=== PATIENT | female | born 1935 | race Caucasian/White ===

== ENCOUNTER 2016-12-31 13:58 | Inpatient (IN) | payer MEDICARE, OTHER ==
--- NOTE | 2016-12-31 15:06 | EDPRACDOC ---
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: Home Medications Colesevelam HCl [Welchol] 625 mg PO BID 05/28/14 Levothyroxine Sodium [Synthroid] [place] [address]/28/14 Atorvastatin Calcium [Lipitor] 40 mg PO 1000 10/08/15 Gabapentin 400 mg PO BID 02/02/16 Aspirin (Enteric Coated) [Halfprin] 81 mg [place] 99905/27/16 Bethanechol [Urecholine] 25 mg PO BID 08/31/16 Calcium Carbonate/Vitamin D3 [Calcium 600 + Vit D Tablet] 1 tab PO 999 Cyanocobalamin (Vitamin B-12) [B-12] 1,[place] [address]/31/16 Fish Oil/Dha/Epa [Fish Oil 1,200 mg Fish Oil] 1 [place] [address]/31/16 Hydrocodone/Acetaminophen [Hydrocodon-Acetaminophn 10-325] 1 tab PO TID Loperamide HCl [Imodium A-D] 2 mg PO DIR PRN 08/31/16 Melatonin 5 mg PO HS 08/31/16 Nitrofurantoin [Macrobid] 100 mg PO 1700 08/31/16 Omeprazole [Prilosec] [place] [address]/31/16 Paroxetine HCl [Paxil] [place] [address]/31/16 Potassium Chloride [Klor-Con] 20 meq PO BID 08/31/16 Vit C/E/Zn/Coppr/Lutein/Zeaxan [Ocuvite Lutein & Zeaxanthin Cp] 1 cap PO 999 Fexofenadine HCl [Allergy Relief] 60 mg PO DAILY PRN 10/05/16 Phosp Acid/Dextrose/Fructose [Emetrol Oral Solution] 15 ml PO .Q15M PRN Glipizide [Glipizide ER] [place] [address]/11/16 Juice Plus Garden 1 tab PO BID 10/11/16 Juice Plus Orchard 1 tab PO BID 10/11/16 Acetaminophen Ex Str Tablet [TYLENOL EXTRA STRENGTH Tablet] 1,000 mg PO Q6H PRN 12/31/16 Dextran 70/Hypromellose [Artificial Tears Drops] 2 drops OU QID 01/30/17 Ferrous Sulfate [Slow Release Iron] 45 mg PO 1000 12/31/16 Guaifenesin-Dextromethorphan [Robitussin Dm] 10 ml PO Q4H PRN 12/31/16 Loperamide HCl [Loperamide] 2 mg PO QID PRN 12/31/16 Allergies/Adverse Reactions: Allergies Allergy/AdvReac Type Severity Reaction Status Date / Time codeine Allergy Nausea/Vomi Verified 12/31/16 14:52 ting Penicillins Allergy Unknown Verified 12/31/16 14:52 promethazine HCl Allergy Confusion Verified 12/31/16 14:52 [From Phenergan] Sulfa (Sulfonamide Allergy Unknown Verified 12/31/16 14:52 Antibiotics) - History of Present Illness Onset: this am Exact Onset of Symptoms: Unknown Date Symptoms Started: 12/31/16 HPI: PT PRESENTS WITH REPORT OF ALTERED MENTAL STATUS AND DIFFICULT SPEECH. SHE WAS NORMAL YESTERDAY PER FAMILY. SHE HAS ACCOMPANYING LOWER ABDOMINAL PAIN. DAUGHTER REPORTS HISTORY OF AMS WITH UTI. NO HISTORY OF DEMENTIA. SHE HAS HISTORY OF TIA AND A TRAUMATIC HEAD BLEED IN 2016. Duration: Since Onset Symptoms Currently: Reports: Still Present Altered Quality: Reports: Decreased Alertness Altered Severity: Reports: Moderate Relevant History: Reports: Diabetes. Denies: CVA, Dementia Associated signs and symptoms: Reports: Slurred speech (POOR WORD FINDING AND SLOW SPEECH PATTERN.). Denies: Chest pain, Headache, Seizure - Treatment Prior to ED Arrival Reported Medications/Treatment [employer] OPER[employer] EMS Treatment BLS ED Past Medical History - History Reviewed Yes Nurses notes reviewed and agree except as marked - Patient Medical History Neurological History: Reports: Cerebrovascular Accident (2009) Cardiac History: Reports: Hypertension (often has low blood pressures), Hypercholesterolemia Respiratory History: Reports: COPD, Pneumonia GI/ History: Reports: Urinary Tract Infection, Gastroesophageal Reflux Musculoskeletal History: Reports: Arthritis (and chronic back pain with DDD), Osteoarthritis (AND LEGALLY BLIND.) Psychological History: Reports: Depression. Denies: Substance Use Disorder Systemic History: Reports: Diabetes (Type 2, diagnosed in her 20's. Also gastroparesis.), Hyperthyroidism, Hypothyroidism. Denies: Cancer Surgical History: Reports: Cholecystectomy, Hysterectomy (for uterine cancer), Other (LEFT HIP) Date of Last Radiation Treatment: 28 yrs ago - Family Medical History Reports: Diabetes (Mother), Cancer (Father). Denies: Hypertension, Stroke, Cardiac Disorders - Social Medical History Smoking Status: Never smoker Social History: Denies: Substance Use Disorder Lives With: Spouse Lives In: Home EDM Review of Systems - Review of Systems ROS Negative Except as Marked: Yes All systems reviewed and were negative except as marked Constitutional: Fatigue, Weakness. negative: Fever Respiratory: negative: Shortness of Breath Cardiovascular: negative: Chest Pain Gastrointestinal: Pain. negative: Vomiting Neurological: Speech Difficulty. negative: Headache - Physical Exam Constitutional: Alert. negative: Well appearing Oriented to: Time, Person, Place Last recorded Vital Signs: Last Vital Signs Temp 98.2 F 12/31/16 14:20 Pulse 90 12/31/16 14:43 Resp 20 12/31/16 14:43 BP 197/86 H 12/31/16 14:43 Pulse Ox 98 12/31/16 14:43 Oxygen Pulse Oxygen Saturation 98 O2 Device Oxygen Flow Rate Fraction of Inspired Oxygen ( FIO2) - HEENT Head: negative: Deformity, Laceration Eye Exam: negative: Conjunctival Injection, Pale Conjunctiva Oropharynx: negative: Membranes Dry Nose: negative: Congestion, Discharge Neck: negative: Limited ROM - Respiratory/Cardiovascular Respiratory: Normal - CTA. negative: Accessory Muscle Use, Diminished, Tachypnea Cardiovascular: negative: Bradycardia, Tachycardia - GI Auscultation: Normal Palpation: Normal Tenderness: Moderate, Guarding, Suprapubic. negative: Rebound, Rigidity - Musculoskeletal Extremities: Radial Pulse (PALPABLE) - Integumentary Skin: Warm, Dry. negative: Rash - Neurologic Memory Impaired: Normal Motor Function: Normal Mood Description: Anxious Thought: Coherent - Results 12/31/16 15:30 12/31/16 15:30 - EKG EKG #1 EKG Time: 15:05 -: Yes EKG interpreted by me Rate: bpm: 91 [place]: LAD Rhythm: NSR ST: Nonsp - Departure Yes I personally saw and evaluated the patient. Disposition: Admit IP To This Hospital Final Diagnosis: CVA (cerebral vascular accident) Qualifiers: CVA mechanism: unspecified Qualified Code(s): I63.9 - Cerebral infarction, unspecified Hypertension Qualifiers: Hypertension type: essential hypertension Qualified Code(s): I10 - Essential ( primary) hypertension Decision to Admit Time: 18:45 Decision to admit date: 12/31/16 Decision to admit: from ED NIH Stroke Scale Initial Evaluation Level of Consciousness: Alert LOC- Question: Answers Both Correctly LOC Commands: Both Task Correctly Best Gaze: Normal Visual: No Visual Loss Facial Palsy: Normal Movement Motor Arm LEFT: No Drift Motor Arm RIGHT: No Drift Motor Leg LEFT: No Drift Motor Leg RIGHT: No Drift Limb Ataxia: Absent Sensory: Normal Best Language: No Aphasia Dysarthria: Mild to Moderate Extinction and Inattention: No Abnormality (Neglect) Score: 1out of42
--- NOTE | 2016-12-31 15:19 | DIRPT ---
CLINICAL DATA: Abdominal PICC EXAM: PORTABLE CHEST 1 VIEW COMPARISON: Chest x-ray dated 10/11/2016. FINDINGS: Mild cardiomegaly is unchanged. Overall cardiomediastinal silhouette is stable in size and configuration. Mild scarring/fibrosis again noted within each lung. No evidence of pneumonia. No pleural effusion. No evidence of significant volume overload/CHF. Slight elevation of the right hemidiaphragm is again noted. Old healed fracture of the left clavicle again noted. Osseous and soft tissue structures about the chest are otherwise unremarkable. IMPRESSION: Stable chest x-ray. No acute findings. Electronically Signed By: Dillon Reese M.D. On: 12/31/2016 15:16
[2016-12-31 15:29] LABS: LEUKOCYTES/URINE 1+ (NEGATIVE); NITRITE/URINE NEG (NEGATIVE); URINE OCCULT BLOOD NEG (NEG/TRACE)
[2016-12-31] MEDS ORDERED: Pharmacy Review for Metformin - IV Contrast Given SCH (16:00)
[2016-12-31 16:02] LABS: AUTOMATED BASOPHIL 0.4 % (0-2); AUTOMATED EOSINOPHIL 0.2 % (0-5); AUTOMATED LYMPH 27.3 % (17-44); AUTOMATED MONOCYTE 6.4 % (3-10); AUTOMATED NEUTROPHIL 65.7 % (45-76); MPV 7.4 fL (7.4-10.4)
[2016-12-31 16:20] LABS: PT-INR 1.1
[2016-12-31 16:29] LABS: BLOOD UREA NITROGEN 18 MG/DL (7-17); CALCIUM 10.2 MG/DL (8.4-10.2); CALCULATED OSMOLALITY 271 MOs/Kg (270-290); CHLORIDE 103 mEq/L (98-107); GLUCOSE 117 MG/DL (70-99); SODIUM LEVEL 139 mEq/L (137-146); TOTAL PROTEIN 8.4 G/DL (6.3-8.2)
--- NOTE | 2016-12-31 17:37 | DIRPT ---
CLINICAL DATA: Altered mental status. History of uterine cancer. EXAM: CT HEAD WITHOUT CONTRAST TECHNIQUE: Contiguous axial images were obtained from the base of the skull through the vertex without intravenous contrast. COMPARISON: 10/11/2016 FINDINGS: Sinuses/Soft tissues: Clear paranasal sinuses and mastoid air cells. Intracranial: Moderate low density in the periventricular white matter likely related to small vessel disease. Dense vertebral and carotid atherosclerosis. Vague hypoattenuation within the right side of the milagros on image 10/series 2. This was present on 08/31/2016. No mass lesion, hemorrhage, hydrocephalus, acute infarct, intra-axial, or extra-axial fluid collection. IMPRESSION: 1. No acute intracranial abnormality. 2. Small vessel ischemic change, moderate in severity. 3. Remote right pontine infarct. Electronically Signed By: Frankie Calvillo M.D. On: 12/31/2016 17:34
--- NOTE | 2016-12-31 17:38 | DIRPT ---
CLINICAL DATA: Lower abdominal pain. History of hysterectomy for uterine cancer. Prior cholecystectomy. EXAM: CT ABDOMEN AND PELVIS WITH CONTRAST TECHNIQUE: Multidetector CT imaging of the abdomen and pelvis was performed using the standard protocol following bolus administration of intravenous contrast. CONTRAST: 80 cc Isovue 370 IV. COMPARISON: 01/31/2016 CT abdomen/ pelvis. FINDINGS: Lower chest: No significant pulmonary nodules or acute consolidative airspace disease. Hepatobiliary: Normal liver with no liver mass. Cholecystectomy. No intrahepatic biliary ductal dilatation. Common bile duct diameter 10 mm, not appreciably changed since 01/31/2016 and at the upper limits of normal post cholecystectomy. Pancreas: Normal, with no mass or duct dilation. Spleen: Normal size. No mass. Adrenals/Urinary Tract: Normal adrenals. Hypodense 0.9 cm renal lesion in the lower left kidney, too small to characterize, unchanged since 01/31/2016, suggesting a benign renal cyst. Additional tiny subcentimeter hypodense renal cortical lesions in the left kidney are too small to characterize and not appreciably changed. No hydronephrosis. Normal bladder. Stomach/Bowel: Tiny hiatal hernia. Otherwise collapsed and grossly normal stomach. Normal caliber small bowel with no small bowel wall thickening. The appendix is either diminutive or surgically absent. Normal large bowel with no diverticulosis, large bowel wall thickening or pericolonic fat stranding. Mild to moderate rectal stool, with no rectal wall thickening. Vascular/Lymphatic: Atherosclerotic nonaneurysmal abdominal aorta. Patent portal, splenic, hepatic and renal veins. No pathologically enlarged lymph nodes in the abdomen or pelvis. Reproductive: Status post hysterectomy, with no abnormal findings at the vaginal cuff. No adnexal mass. Other: No pneumoperitoneum, ascites or focal fluid collection. Musculoskeletal: No aggressive appearing focal osseous lesions. Severe degenerative disc disease throughout the visualized thoracolumbar spine. Left femoral neck pin with partially visualized interlocking intramedullary reina in the proximal left femoral shaft, with no evidence of hardware fracture or loosening. IMPRESSION: 1. No evidence of bowel obstruction or acute bowel inflammation. Mild to moderate rectal stool without rectal wall thickening. 2. Status post hysterectomy, with no abnormal findings at the vaginal cuff. 3. Tiny hiatal hernia. Electronically Signed By: Aftab Albert M.D. On: 12/31/2016 17:36
[2016-12-31] MEDS ORDERED: ONDANSETRON HCL 4 MG/2 ML VIAL IV STA ×2 (18:37→19:57)
[2016-12-31] MEDS ORDERED: ASPIRIN 300 MG SUPP PR ONE (18:53)
--- NOTE | 2016-12-31 19:28 | HISTPHYS ---
- Chief Complaint difficulty speaking - History of Present Illness PRIMARY CARE PROVIDER: Dr. Son UROLOGIST: Dr. Gordon GI: Dr. Rivera HPI: The patient is an 81 yo woman with history of CVA 2009, subarachnoid hemorrhage after trauma 08/2016, who presents with word finding. Per report, she may have woken up with the word finding. She was in bed all day and was not well. She would start a sentence and then would be unable to finish her sentence. The patient's daughter provides history and also showed a video of how her mother was talking today. The daughter reports the patient was fine yesterday. The patient seemed aware that she could not say what she wanted to say. She did not really even start sentences; she just would say a word or 2 and then stop talking. Daughter thinks the patient is understanding what the daughter is saying. Onset: either overnight or early this morning. Duration: intermittent. Location: generalized. Character: difficulty speaking; not saying many words. Alleviated by: Nothing. Exacerbated by: Nothing. Associated Symptoms: No headache. She is in a wheelchair most of the time at baseline. She falls frequently. Treatments: none at home except usual medications. The patient has had nausea and vomiting. She also has frequent diarrhea and abdominal pain. The patient's daughter reports that all of these symptoms are chronic and due to gastroparesis and effects of radiation therapy on her abdomen received years ago for uterine cancer. - Medical History Cardiac History: Reports: Hypertension (Hx of. But has orthostatic hypotension when taking bp meds.), Hypercholesterolemia Respiratory History: Reports: Pneumonia GI/ History: Reports: Urinary Tract Infection, Gastroesophageal Reflux (and gastroparesis with recurrent N/V/D. 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 Also gastroparesis, frequent diarrhea.), Hyperthyroidism, Hypothyroidism Neurological History: Reports: Cerebrovascular Accident (2009. SUBARACHNOID HEMORRHAGE 08/2016 POST FALL; [place] at [facility].) Psychological History: Reports: Depression. Denies: Substance Use Disorder OTHER HISTORY: RETINAL DETACHMENT. Macular degeneration. Legally blind. From notes from [facility] Hospitalization 08/31/16 - 09/07/16: Diagnosis: TRAUMATIC SUBARACHNOID HEMORRHAGE. Type of Stroke: Hemorrhagic. Cause of Stroke: Trauma. Hospital Course: The patient had a fall on 08/31/2016. Prior to the fall she was normal and conversational. She was brought to [facility], and was found to have altered mental status and a small left frontal subarachnoid hemorrhage. She was transferred to [facility]. The patient returned to her baseline by the morning after admission. A scan 24 hours later revealed stable subarachnoid hemorrhage. On 09/06/2016, the patient developed nausea and vomiting, and a repeat head CT revealed redistribution of the subarachnoid hemorrhage with no evidence of extension of previous hemorrhage or additional hemorrhage. The patient did not have cranial surgery for her hemorrhage. She was discharged to rehab facility. At the time of discharge the patient's aspirin of 81 mg was restarted but her Plavix was held. Note states that the Plavix could be restarted at the discretion of the patient's primary care physician. The patient did have hypertension during the visit and was started on metoprolol 25 mg p.o. twice daily and lisinopril 5 mg daily. Patient was also found to have pneumonia and completed a 7 day course of cefepime and vancomycin. The exam notes for cranial nerves include cranial nerves: Unable to visualize optic nerve on right with left eye temporal field intact. Left pupil with slow with sluggish response. Total ICH Score on admission: 1. For Level of Arlin Coma Score: 0 (For GCS 13-15) Age 80 or greater: 1 ICH Volume 30 mL or greater: 0 Intraventricular hemorrhage: 0 Infratentorial Origin of hemorrhage: 0 The patient was discharged on a statin, atorvastatin 40 mg p.o. daily. Note: Scanned records from the [facility] 08/31/16 hospitalization are available in [email or web address] by selecting the 10/11/16 [facility] admission and then selecting "Other facility records" under the Note section for that admission. - Surgical History Reports: Cholecystectomy, Hysterectomy (for uterine cancer approx 1987), Other ( LEFT HIP gamma nail 05/2016.) - Medictions/Allergies Allergies codeine Allergy (Verified 12/31/16 14:52) Nausea/Vomiting Penicillins Allergy (Verified 12/31/16 14:52) Unknown PER FACILITY MAR promethazine HCl [From Phenergan] Allergy (Verified 12/31/16 14:52) Confusion Sulfa (Sulfonamide Antibiotics) Allergy (Verified 12/31/16 14:52) Unknown Current Medication List: Reviewed Home Medications Colesevelam HCl [Welchol] 625 mg PO BID 05/28/14 Levothyroxine Sodium [Synthroid] [place] [address]/28/14 Atorvastatin Calcium [Lipitor] [place] [address]/08/15 Gabapentin 400 mg PO BID 02/02/16 Aspirin (Enteric Coated) [Halfprin] 81 mg PO 99905/27/16 Bethanechol [Urecholine] 25 mg PO BID 08/31/16 Calcium Carbonate/Vitamin D3 [Calcium 600 + Vit D Tablet] 1 tab PO 999 Cyanocobalamin (Vitamin B-12) [B-12] 1,[place] [address]/31/16 Fish Oil/Dha/Epa [Fish Oil 1,200 mg Fish Oil] 1 [place] [address]08/31/16 Hydrocodone/Acetaminophen [Hydrocodon-Acetaminophn 10-325] 1 tab PO TID Loperamide HCl [Imodium A-D] 2 mg PO DIR PRN 08/31/16 Melatonin 5 mg PO HS 08/31/16 Nitrofurantoin [Macrobid] 100 mg PO 1700 08/31/16 Omeprazole [Prilosec] [place] [address]/31/16 Paroxetine HCl [Paxil] [place] [address]/31/16 Potassium Chloride [Klor-Con] 20 meq PO BID 08/31/16 Vit C/E/Zn/Coppr/Lutein/Zeaxan [Ocuvite Lutein & Zeaxanthin Cp] 1 cap PO 999 Fexofenadine HCl [Allergy Relief] 60 mg PO DAILY PRN 10/05/16 Phosp Acid/Dextrose/Fructose [Emetrol Oral Solution] 15 ml PO .Q15M PRN Glipizide [Glipizide ER] [place] [address]/11/16 Juice Plus Garden 1 tab PO BID 10/11/16 Juice Plus Orchard 1 tab PO BID 10/11/16 Acetaminophen Ex Str Tablet [TYLENOL EXTRA STRENGTH Tablet] 1,000 mg PO Q6H PRN 12/31/16 Dextran 70/Hypromellose [Artificial Tears Drops] 2 drops OU QID 12/31/16 Ferrous Sulfate [Slow Release Iron] 45 mg PO 1000 12/31/16 Guaifenesin-Dextromethorphan [Robitussin Dm] 10 ml PO Q4H PRN 12/31/16 Loperamide HCl [Loperamide] 2 mg PO QID PRN 12/31/16 - Family History Reports: Diabetes (Mother), Cancer (Father). Denies: Stroke, Cardiac Disorders - Social History Smoking Status: Never smoker Social History: Denies: Alcohol Use, Substance Use Disorder - Review of Systems Yes Review of systems cannot be obtained due to the patient's medical condition - Physical Exam Vital Signs: Initial Vitals Temperature 98.2 F 12/31/16 14:20 Pulse Rate 90 12/31/16 14:20 Respiratory Rate 19 12/31/16 14:20 Blood Pressure 136/90 12/31/16 14:20 Pulse Oxygen Saturation 98 12/31/16 14:20 Vital Signs - 24 hr 12/31/16 12/31/16 12/31/16 14:20 14:43 16:24 Temperature 98.2 F Pulse Rate 90 90 100 Respiratory 19 20 20 Rate Blood Pressure 136/90 197/86 H 166/76 Pulse Oxygen 98 98 98 Saturation 12/31/16 12/31/16 12/31/16 18:56 19:15 19:39 Temperature Pulse Rate 102 98 100 Respiratory 18 18 22 Rate Blood Pressure 191/87 H 207/97 H 146/72 Pulse Oxygen 97 97 92 Saturation 12/31/16 12/31/16 12/31/16 20:23 21:31 22:18 Temperature 97.9 F Pulse Rate 96 96 95 Respiratory 22 22 24 Rate Blood Pressure 160/77 169/79 149/65 Pulse Oxygen 97 96 99 Saturation - Other Exam Other Exam Findings: GENERAL: Ill-appearing, well nourished, in acute distress. HEENT: Normocephalic, atraumatic; pupils equal and round. Nares patent, without discharge or bleeding. No oropharyngeal lesions or erythema. Mucous membranes are dry. NECK: is supple, no masses, trachea midline. RESPIRATORY: Clear to auscultation bilaterally. Chest wall movements are symmetric. No use of accessory muscles to breathe. No wheezing, rales, rhonchi. CARDIOVASCULAR: Normal S1, S2. No rubs, or gallops. PMI non-displaced. Carotids : no carotid bruits. No bradycardia or tachycardia. DP pulses 1-2+ bilaterally. GI: soft, nontender, non-distended, normal active bowel sounds. No hepatosplenomegaly. INTEGUMENT: Clean, dry, and intact. MUSCULOSKELETAL: No cyanosis. No clubbing. Edema: none bilaterally. NEUROLOGICAL: Cranial nerves 2-12 grossly intact. Motor: observed patient to move all extremities and did obey some commands to check motor: 3/5 throughout. Reflexes: 1-2+ bilaterally. Babinski: toes downgoing bilaterally. Paucity of speech. Followed a few simple commands. Could give simple 1-word answers to some questions. No slurred speech. Speech pattern is slow. PSYCHIATRIC: Oriented to place, name, and year. Flat affect. Intermittently somnolent. LYMPHATIC: No cervical lymphadenopathy. No supraclavicular lymphadenopathy. - Lab Results Laboratory Tests 12/31/16 12/31/16 12/31/16 15:09 15:30 15:30 WBC 8.5 RBC 4.22 Hgb 11.8 L Hct 35.6 L MCV 85 MCH 28.0 MCHC 33.2 RDW 14.6 H Plt Count 208 MPV 7.4 Neut % (Auto) 65.7 Lymph % (Auto) 27.3 [place] % (Auto) 6.4 Eos % (Auto) 0.2 Baso % (Auto) 0.4 Absolute Neuts (auto) 5.53 Absolute Lymphs (auto) 2.30 PT INR APTT Sodium 139 Potassium 4.2 Chloride 103 Carbon Dioxide 23 Anion Gap 17 H BUN 18 H Creatinine 0.90 Estimated GFR (MDRD) > 60 Glucose 117 H POC Capillary Glucose Hemoglobin A1c Calculated Osmolality 271 Calcium 10.2 Total Bilirubin 0.8 AST 25 ALT 23 Alkaline Phosphatase 122 Troponin I < 0.01 Total Protein 8.4 H Albumin 4.4 Lipase 36 Urine Color Pale yell0w Urine Clarity Sl cldy Urine pH 7.0 Ur Specific [place] </=1.005 Urine Protein Trace Urine Glucose (UA) Neg Urine Ketones Neg Urine Occult Blood Neg Urine Nitrite Neg Urine Bilirubin Neg Urine Urobilinogen 0.2 Ur Leukocyte Esterase 1+ H Urine RBC 2-5 Urine WBC 2-5 Ur Epithelial Cells Occ Urine Bacteria 1+ H Urine Mucus Occ 12/31/16 12/31/16 12/31/16 15:30 15:30 17:40 WBC RBC Hgb Hct MCV MCH MCHC RDW Plt Count MPV Neut % (Auto) Lymph % (Auto) [place] % (Auto) Eos % (Auto) Baso % (Auto) Absolute Neuts (auto) Absolute Lymphs (auto) PT 11.1 INR 1.1 APTT 23.0 Sodium Potassium Chloride Carbon Dioxide Anion Gap BUN Creatinine Estimated GFR (MDRD) Glucose POC Capillary Glucose Hemoglobin A1c 6.5 H Calculated Osmolality Calcium Total Bilirubin AST ALT Alkaline Phosphatase Troponin I < 0.01 Total Protein Albumin Lipase Urine Color Urine Clarity Urine pH Ur Specific [place] Urine Protein Urine Glucose (UA) Urine Ketones Urine Occult Blood Urine Nitrite Urine Bilirubin Urine Urobilinogen Ur Leukocyte Esterase Urine RBC Urine WBC Ur Epithelial Cells Urine Bacteria Urine Mucus - Diagnostic Findings DIAGNOSTIC DATA: EK bpm. Atrial fibrillation with a competing junctional pacemaker. Left axis deviation. Reviewed EKG personally. Reviewed EKG personally. IMAGING: Chest x-ray, viewed personally: EXAM: PORTABLE CHEST 1 VIEW COMPARISON: Chest x-ray dated 10/11/2016. FINDINGS: Mild cardiomegaly is unchanged. Overall cardiomediastinal silhouette is stable in size and configuration. Mild scarring/fibrosis again noted within each lung. No evidence of pneumonia. No pleural effusion. No evidence of significant volume overload/CHF. Slight elevation of the right hemidiaphragm is again noted. Old healed fracture of the left clavicle again noted. Osseous and soft tissue structures about the chest are otherwise unremarkable. IMPRESSION: Stable chest x-ray. No acute findings. Head CT: EXAM: CT HEAD WITHOUT CONTRAST TECHNIQUE: Contiguous axial images were obtained from the base of the skull through the vertex without intravenous contrast. COMPARISON: 10/11/2016 FINDINGS: Sinuses/Soft tissues: Clear paranasal sinuses and mastoid air cells. Intracranial: Moderate low density in the periventricular white matter likely related to small vessel disease. Dense vertebral and carotid atherosclerosis. Vague hypoattenuation within the right side of the milagros on image 10/series 2. This was present on 08/31/2016. No mass lesion, hemorrhage, hydrocephalus, acute infarct, intra-axial, or extra-axial fluid collection. IMPRESSION: 1. No acute intracranial abnormality. 2. Small vessel ischemic change, moderate in severity. 3. Remote right pontine infarct. Abdomen/Pelvis CT: EXAM: CT ABDOMEN AND PELVIS WITH CONTRAST TECHNIQUE: Multidetector CT imaging of the abdomen and pelvis was performed using the standard protocol following bolus administration of intravenous contrast. CONTRAST: 80 cc Isovue 370 IV. COMPARISON: 01/31/2016 CT abdomen/ pelvis. FINDINGS: Lower chest: No significant pulmonary nodules or acute consolidative airspace disease. Hepatobiliary: Normal liver with no liver mass. Cholecystectomy. No intrahepatic biliary ductal dilatation. Common bile duct diameter 10 mm, not appreciably changed since 01/31/2016 and at the upper limits of normal post cholecystectomy. Pancreas: Normal, with no mass or duct dilation. Spleen: Normal size. No mass. Adrenals/Urinary Tract: Normal adrenals. Hypodense 0.9 cm renal lesion in the lower left kidney, too small to characterize, unchanged since 01/31/2016, suggesting a benign renal cyst. Additional tiny subcentimeter hypodense renal cortical lesions in the left kidney are too small to characterize and not appreciably changed. No hydronephrosis. Normal bladder. Stomach/Bowel: Tiny hiatal hernia. Otherwise collapsed and grossly normal stomach. Normal caliber small bowel with no small bowel wall thickening. The appendix is either diminutive or surgically absent. Normal large bowel with no diverticulosis, large bowel wall thickening or pericolonic fat stranding. Mild to moderate rectal stool, with no rectal wall thickening. Vascular/Lymphatic: Atherosclerotic nonaneurysmal abdominal aorta. Patent portal, splenic, hepatic and renal veins. No pathologically enlarged lymph nodes in the abdomen or pelvis. Reproductive: Status post hysterectomy, with no abnormal findings at the vaginal cuff. No adnexal mass. Other: No pneumoperitoneum, ascites or focal fluid collection. Musculoskeletal: No aggressive appearing focal osseous lesions. Severe degenerative disc disease throughout the visualized thoracolumbar spine. Left femoral neck pin with partially visualized interlocking intramedullary reina in the proximal left femoral shaft, with no evidence of hardware fracture or loosening. IMPRESSION: 1. No evidence of bowel obstruction or acute bowel inflammation. Mild to moderate rectal stool without rectal wall thickening. 2. Status post hysterectomy, with no abnormal findings at the vaginal cuff. 3. Tiny hiatal hernia. - Assessment (1) CVA (cerebral vascular accident) I63.9 - CEREBRAL INFARCTION, UNSPECIFIED Acute Present on Admission: Yes Qualifiers: CVA mechanism: unspecified Qualified Code(s): I63.9 - Cerebral infarction, unspecified Patient has a history of CVA in the past several years. She also had a subarachnoid hemorrhage in August 2016 after a fall. She was seen at [facility] for the subarachnoid hemorrhage and did not have any craniotomy; she was sent home on 81 mg of aspirin, and the recommendation was the primary care physician could consider restarting the patient's Plavix at a later date. The patient is most likely suffered from another CVA. Discussed the case with the patient's daughter, who is in agreement with the plan to keep the patient on aspirin only due to her history of subarachnoid hemorrhage. Plan: CVA order set. MRI head and Ultrasound of carotids in the AM. NPO until speech therapy evaluation. Physical therapy and occupational therapy evaluations. Neuro checks q 4 hours. Telemetry. Continue daily aspirin. Continue statin. Check lipid levels. NOTE: TPA NOT GIVEN. NO TPA DUE TO: Patient outside of time window and history of subarachnoid hemorrhage. (2) Word finding difficulty R47.89 - OTHER SPEECH DISTURBANCES Acute Present on Admission: Yes Plan: Continue CVA workup. Speech therapy evaluation. (3) Dehydration E86.0 - DEHYDRATION Acute Present on Admission: Yes Plan: IVFs (4) Type 2 diabetes mellitus with hyperglycemia E11.65 - TYPE 2 DIABETES MELLITUS WITH HYPERGLYCEMIA Acute Present on Admission: Yes Plan: Hold oral diabetes medications. Check fingerstick blood sugars q ac and hs. Sliding scale insulin. Ordered A1c and urine microalbumin. - Plan In summary, this patient is acutely and critically ill. The patient requires treatment of vital organ failure and measures to prevent further life- threatening deterioration of condition. I have spent 60 min in the critical care of this patient. Case Care Discussed with: Patient, Family, Nursing Staff Critical Care: Yes Code: 291 NIH Stroke Scale Initial Evaluation Level of Consciousness: Arousable LOC- Question: Answers Both Correctly LOC Commands: Both Task Correctly Best Gaze: Normal Visual: No Visual Loss Facial Palsy: Normal Movement Motor Arm LEFT: No Drift Motor Arm RIGHT: No Drift Motor Leg LEFT: No Drift Motor Leg RIGHT: No Drift Limb Ataxia: Unable to Assess Sensory: Normal Best Language: Mild to Moderate Aphasia Dysarthria: Mild to Moderate Extinction and Inattention: No Abnormality (Neglect) Score: 3out of42 - Comment No drift appreciated but patient had difficulty cooperating with exam.
[2016-12-31] MEDS: LABETALOL 20 MG/4 ML SYRINGE IV PRN (19:34)
[2016-12-31] MEDS ORDERED: LOPERAMIDE HCL 2 MG PO PRN (22:54)
[2016-12-31] MEDS ORDERED: ACETAMINOPHEN 325 MG SUPP PR PRN (22:56)
[2016-12-31] MEDS ORDERED: Aluminum;Magnesium;Simethicone 30 ML UDC PO PRN (22:56)
[2016-12-31] MEDS ORDERED: BISACODYL 5 MG TAB PO PRN (22:56)
[2016-12-31] MEDS ORDERED: BENZONATATE 100 MG PERLES PO PRN (22:56)
[2016-12-31] MEDS ORDERED: GUAIFEN 100 MG-DEXTROMETH 10 MG PER 5 ML PO PRN (22:56)
[2016-12-31] MEDS ORDERED: TEMAZEPAM 15 MG CAP PO PRN (22:56)
[2016-12-31] MEDS ORDERED: SENNA CONCENTRATE TAB PO PRN (22:56)
[2016-12-31] MEDS ORDERED: ACETAMINOPHEN 325 MG/TAB TABLET PO PRN (22:56)
[2016-12-31] MEDS ORDERED: SIMETHICONE 80 MG TAB PO PRN (22:56)
[2016-12-31] MEDS ORDERED: HYPROMELLOSE OU SCH (23:00)
[2016-12-31] MEDS ORDERED: [UNRECOGNIZED DRUG - OTHER] OU SCH (23:00)
[2016-12-31] MEDS ORDERED: ARTIFICIAL TEARS OPH SOLN 15 ML OU SCH (23:00)
[2016-12-31] MEDS ORDERED: DEXTRAN OU SCH (23:00)
[2016-12-31] MEDS: NS 1,000 ML IV SCH (23:12)
[2016-12-31] MEDS: ATORVASTATIN 40 MG TAB PO SCH (23:18)
[2016-12-31] MEDS ORDERED: LOPERAMIDE 2 MG CAP PO PRN (23:22)
[2017-01-01] MEDS: ARTIFICIAL TEARS OPH SOLN 15 ML OU SCH ×5 (00:01→20:09)
[2017-01-01] MEDS: ONDANSETRON HCL 4 MG/2 ML VIAL IV PRN ×2 (03:58→18:00)
[2017-01-01 05:44] LABS: MPV 7.7 fL (7.4-10.4)
[2017-01-01] MEDS: PANTOPRAZOLE 40 MG TAB PO SCH (05:45)
[2017-01-01 06:20] LABS: BLOOD UREA NITROGEN 20 MG/DL (7-17); CALCIUM 10.1 MG/DL (8.4-10.2); CALCULATED OSMOLALITY 276 MOs/Kg (270-290); CHLORIDE 100 mEq/L (98-107); GLUCOSE 302 MG/DL (70-99); SODIUM LEVEL 136 mEq/L (137-146)
[2017-01-01] MEDS ORDERED: GLUCOSE (ORAL GEL) 15 GM TUBE PO PRN (06:41)
[2017-01-01] MEDS ORDERED: DEXTROSE 25 GM/50 ML PFS IV PRN (06:41)
[2017-01-01] MEDS ORDERED: GLUCAGON 1 MG VIAL SQ PRN (06:41)
[2017-01-01] MEDS: REGULAR INSULIN 100 UNITS/ML - 3 ML VIAL SQ SCH ×4 (08:22→20:10)
--- NOTE | 2017-01-01 09:23 | GENMEDPROG ---
Chief Complaint: Suspected CVA Subjective Note: Resting comfortably this morning, though she is shivering because she feels very cold. It is indeed cold in her room. Notes Reviewed: Yes Events from last night noted and discussed with Clinical Staff Current Medication List: Reviewed DVT Prophylaxis: Yes - Physical Examination Vital Signs and I&O: Last Vital Signs Temp 98.3 F 01/01/17 08:22 Pulse 101 01/01/17 08:22 Resp 18 01/01/17 08:22 BP 168/82 01/01/17 08:22 Pulse Ox 98 01/01/17 08:22 Oxygen Pulse Oxygen Saturation 98 O2 Device Room Air Oxygen Flow Rate Fraction of Inspired Oxygen ( FIO2) Intake & Output 12/30/16 12/31/16 01/01/17 01/02/17 06:59 06:59 06:59 06:59 Patient's weight 52.617 kg General: Alert, Oriented x3, Cooperative, Mild distress Neck: Normal Trachea alignment, Normal inspection Respiratory: Normal - CTA. negative: Accessory Muscle Use, Diminished, Tachypnea Cardiovascular: Regular rate, No Gallops,Rubs/Murmurs GI: Normal bowel sounds, Soft, Non tender (non distended) Neurological: Other (Cranial nerves 2-12 are intact, she is moving all extremities, but she seems globally weak. No focal abnormality. No slurred speech. Speech is slow and quiet.) Lab/DI/Studies Reviewed: Laboratory Tests 12/31/16 12/31/16 01/01/17 17:40 21:21 04:35 WBC Hgb Hct ESR 40 H Potassium BUN Creatinine POC Capillary Glucose Troponin I < 0.01 < 0.01 01/01/17 01/01/17 01/01/17 04:35 04:35 06:40 WBC 11.8 H Hgb 11.9 L Hct 35.4 L ESR Potassium 3.4 L BUN 20 H Creatinine 0.90 POC Capillary Glucose 340 H Troponin I - Assessment (1) CVA (cerebral vascular accident) Acute I63.9 - CEREBRAL INFARCTION, UNSPECIFIED Qualifiers: CVA mechanism: unspecified Qualified Code(s): I63.9 - Cerebral infarction, unspecified Comment/Plan: Patient has a history of CVA in the past several years. She also had a subarachnoid hemorrhage in August 2016 after a fall. She was seen at [facility] for the subarachnoid hemorrhage and did not have any craniotomy; she was sent home on 81 mg of aspirin, and the recommendation was the primary care physician could consider restarting the patient's Plavix at a later date. The patient is most likely suffered from another CVA. Discussed the case with the patient's daughter, who is in agreement with the plan to keep the patient on aspirin only due to her history of subarachnoid hemorrhage. Plan: CVA order set. MRI head and Ultrasound of carotids in the AM. NPO until speech therapy evaluation. Physical therapy and occupational therapy evaluations. Neuro checks q 4 hours. Telemetry. Continue daily aspirin. Continue statin. Check lipid levels. NOTE: TPA NOT GIVEN. NO TPA DUE TO: Patient outside of time window and history of subarachnoid hemorrhage. (2) Hypertension Acute I10 - ESSENTIAL (PRIMARY) HYPERTENSION Qualifiers: Hypertension type: essential hypertension Qualified Code(s): I10 - Essential (primary) hypertension (3) Type 2 diabetes mellitus with hyperglycemia Acute E11.65 - TYPE 2 DIABETES MELLITUS WITH HYPERGLYCEMIA Comment/Plan: Plan: Hold oral diabetes medications. Check fingerstick blood sugars q ac and hs. Sliding scale insulin. Ordered A1c and urine microalbumin. (4) Word finding difficulty Acute R47.89 - OTHER SPEECH DISTURBANCES Comment/Plan: Plan: Continue CVA workup. Speech therapy evaluation. (5) CRI (chronic renal insufficiency) Acute N18.9 - CHRONIC KIDNEY DISEASE, UNSPECIFIED Qualifiers: Chronic kidney disease stage: stage 1 Qualified Code(s): N18.1 - Chronic kidney disease, stage 1 Comment/Plan: Resolved - Plan In summary this patient is acutely and critically ill. The patient requires treatment of vital organ failure and measures to prevent further life- threatening deterioration of the above conditions. I personally reviewed and ordered lab testing, as well as imaging. I reviewed old medical records from previous hospitalizations as available, and spent the time mentioned below in critical care of this patient including counseling and coordination of care. Case Care Discussed with: Patient, Family, Nursing Staff Total Time: 45
[2017-01-01] MEDS ORDERED: [UNRECOGNIZED DRUG - OTHER] PO SCH (10:00)
[2017-01-01] MEDS ORDERED: Non-Formulary Medication ITEM (Omeprazole 20 MG) PO SCH (10:00)
[2017-01-01] MEDS ORDERED: CYANOCOBALAMIN 1000 MCG PO SCH (10:00)
[2017-01-01] MEDS ORDERED: FERROUS SULFATE 45 MG PO SCH (10:00)
[2017-01-01] MEDS: COLESEVELAM HCL 625 MG TAB PO SCH ×2 (10:03→19:19)
[2017-01-01] MEDS: PAROXETINE 20 MG TAB PO SCH (10:04)
--- NOTE | 2017-01-01 11:26 | DIRPT ---
CLINICAL DATA: 81-year-old female with a history of TIA. EXAM: BILATERAL CAROTID DUPLEX ULTRASOUND TECHNIQUE: Colmenares scale imaging, color Doppler and duplex ultrasound were performed of bilateral carotid and vertebral arteries in the neck. COMPARISON: Head CT 12/31/2016 FINDINGS: Criteria: Quantification of carotid stenosis is based on velocity parameters that correlate the residual internal carotid diameter with NASCET-based stenosis levels, using the diameter of the distal internal carotid lumen as the denominator for stenosis measurement. The following velocity measurements were obtained: RIGHT ICA: Systolic 116 cm/sec, Diastolic 24 cm/sec CCA: 118 cm/sec SYSTOLIC ICA/CCA RATIO: 0.98 ECA: 179 cm/sec LEFT ICA: Systolic 114 cm/sec, Diastolic 7 cm/sec CCA: 109 cm/sec SYSTOLIC ICA/CCA RATIO: 1.0 ECA: 129 cm/sec Right Brachial SBP: Not acquired Left Brachial SBP: Not acquired RIGHT CAROTID ARTERY: Atherosclerotic changes of the right common carotid artery. Intermediate waveform maintained. Heterogeneous plaque at the right carotid bifurcation. No significant calcifications. Low resistance waveform of the right ICA. RIGHT VERTEBRAL ARTERY: Low diastolic component of the vertebral artery waveform, with antegrade flow. LEFT CAROTID ARTERY: Atherosclerotic changes of the left common carotid artery. Intermediate waveform maintained. Heterogeneous plaque at the left carotid bifurcation without significant calcifications or shadowing. LEFT VERTEBRAL ARTERY: Low diastolic component of the left vertebral artery, with antegrade flow. IMPRESSION: Color duplex indicates minimal heterogeneous plaque, with no hemodynamically significant stenosis by duplex criteria in the extracranial cerebrovascular circulation. The waveform of the left and right vertebral artery demonstrate low diastolic component/high resistance, which can indicate bilateral distal vertebral or basilar artery high-grade stenosis/occlusion. If there is clinical concern for acute basilar artery occlusion, CT angiogram may be considered. These results were called by telephone at the time of interpretation on 01/01/2017 at 11:[address] Tyler MD, who verbally acknowledged these results. Signed, Harry Tolbert DO [facility] Electronically Signed By: Harry Tolbert D.O. On: 01/01/2017 11:24
[2017-01-01] MEDS ORDERED: Pharmacy Review for Metformin - IV Contrast Given SCH (12:00)
[2017-01-01] MEDS: FERROUS SULFATE 324 MG TAB PO SCH (12:17)
[2017-01-01] MEDS: CYANOCOBALAMIN (Vitamin B-12) 500 MCG TABLET PO SCH (12:17)
[2017-01-01] MEDS: VITAMINS, MULTIPLE CAP PO SCH (12:17)
--- NOTE | 2017-01-01 12:47 | DIRPT ---
CLINICAL DATA: 81-year-old female with altered mental status. Uterine cancer. Initial encounter. EXAM: CT ANGIOGRAPHY HEAD AND NECK TECHNIQUE: Multidetector CT imaging of the head and neck was performed using the standard protocol during bolus administration of intravenous contrast. Multiplanar CT image reconstructions and MIPs were obtained to evaluate the vascular anatomy. Carotid stenosis measurements (when applicable) are obtained utilizing NASCET criteria, using the distal internal carotid diameter as the denominator. CONTRAST: 100 mL Isovue 370 COMPARISON: Head CT without contrast 12/31/2016 and earlier. Brain MRI 10/10/2015 FINDINGS: CT HEAD Brain: Stable garcia-white matter differentiation throughout the brain. Chronic appearing lacunar infarcts in the left basal ganglia and right milagros re- demonstrated. No cortically based acute infarct identified. No acute intracranial hemorrhage identified. No midline shift, mass effect, or evidence of intracranial mass lesion. No ventriculomegaly. Calvarium and skull base: Intact. Paranasal sinuses: Visualized paranasal sinuses and mastoids are clear. Orbits: Left gaze deviation. Otherwise no acute orbit or scalp soft tissue finding. CTA NECK Skeleton: Advanced cervical spine degeneration. Osteopenia. Chronic appearing left clavicular head fracture. Left sternoclavicular joint degeneration. Chronic appearing distal left clavicle fracture. No acute osseous abnormality identified. Other neck: Mild perihilar bronchiectasis. Subpleural scarring in the posterior right upper lobe. No superior mediastinal lymphadenopathy. Diminutive thyroid. Larynx, pharynx, parapharyngeal spaces, retropharyngeal space, and sublingual space are within normal limits. Somewhat atrophied appearing submandibular glands. Parotid glands within normal limits. No cervical lymphadenopathy. Aortic arch: 3 vessel arch configuration. Mild to moderate calcified arch atherosclerosis. No great vessel origin stenosis. Right carotid system: Mild to moderate calcified atherosclerosis along the anterior right CCA proximal to the bifurcation, no associated stenosis. Minimal irregularity of the right ICA origin without stenosis. The cervical right ICA otherwise negative aside from mild tortuosity. Left carotid system: Negative left CCA origin. Minimal calcified plaque along the left CCA proximal to the bifurcation. Minimal irregularity at the left ICA origin and bulb without stenosis. Otherwise negative cervical left ICA. Vertebral arteries:No proximal subclavian artery stenosis. Normal bilateral vertebral arteries. Tortuous bilateral V1 segments, kinked appearance bilaterally more so on the left (coronal image 166). Somewhat dolichoectatic appearing bilateral vertebral arteries throughout the neck, no stenosis to the level of the skullbase. CTA HEAD Posterior circulation: Calcified plaque in both distal vertebral arteries, moderate on the left. Mild to moderate left V4 segment stenosis proximal to the left PICA. No significant distal right vertebral artery stenosis. Both PICA origins are patent. Patent vertebrobasilar junction. No basilar artery stenosis. AICA and SCA origins are within normal limits. AUDIO VISUAL AIDE origins are within normal limits, the left P1 segment is tortuous. Diminutive posterior communicating arteries. Bilateral AUDIO VISUAL AIDE branches are within normal limits. Anterior circulation: Calcified plaque throughout both cavernous and supraclinoid siphon segments. Mild to moderate siphon stenosis on the left. Mild siphon stenosis on the right. Ophthalmic and posterior communicating artery origins are normal. Small distal left ICA infundibulum incidentally noted (series 602, image 154). Normal carotid termini, MCA and BREE origins. Anterior communicating artery and bilateral BREE branches within normal limits. Left MCA M1 segment, bifurcation, and left MCA branches within normal limits. Right MCA M1 segment, bifurcation, and right MCA branches within normal limits. Simple jane branching pattern on the right. Venous sinuses: Patent. Anatomic variants: None. Delayed phase: No abnormal enhancement identified. IMPRESSION: 1. Negative for emergent large vessel occlusion. Mild for age atherosclerosis in the neck with no stenosis. 2. Calcified intracranial atherosclerosis with up to moderate stenosis of the left ICA siphon and distal left vertebral artery. Mild right siphon stenosis. 3. Otherwise negative intracranial CTA. 4. Stable CT appearance of the brain with chronic small vessel disease. No acute cortically based infarct identified. 5. Mild perihilar bronchiectasis and a right upper lobe scarring. Chronic appearing left clavicle fractures. Advanced cervical spine degeneration. Electronically Signed By: Kunal Mcmullen M.D. On: 01/01/2017 12:44
[2017-01-01] MEDS: ATORVASTATIN 40 MG TAB PO SCH (16:38)
[2017-01-01] MEDS: NS 1,000 ML IV SCH ×2 (16:41→20:07)
[2017-01-02] MEDS: ONDANSETRON HCL 4 MG/2 ML VIAL IV PRN ×2 (01:11→11:58)
[2017-01-02] MEDS: NS 1,000 ML IV SCH ×3 (01:11→19:58)
[2017-01-02] MEDS: PANTOPRAZOLE 40 MG TAB PO SCH (04:42)
[2017-01-02] MEDS: LABETALOL 20 MG/4 ML SYRINGE IV PRN (05:16)
[2017-01-02 05:20] LABS: MPV 7.7 fL (7.4-10.4)
[2017-01-02] MEDS: REGULAR INSULIN 100 UNITS/ML - 3 ML VIAL SQ SCH ×4 (05:23→19:56)
[2017-01-02] MEDS ORDERED: LORAZEPAM 2 MG/ML VIAL IV PRN (05:33)
[2017-01-02 05:36] LABS: BLOOD UREA NITROGEN 25 MG/DL (7-17); CALCIUM 9.4 MG/DL (8.4-10.2); CALCULATED OSMOLALITY 278 MOs/Kg (270-290); CHLORIDE 105 mEq/L (98-107); GLUCOSE 204 mg/dL (70-99); SODIUM LEVEL 139 mEq/L (137-146)
[2017-01-02] MEDS: COLESEVELAM HCL 625 MG TAB PO SCH ×2 (07:10→19:57)
[2017-01-02] MEDS: PAROXETINE 20 MG TAB PO SCH (07:10)
[2017-01-02] MEDS: ARTIFICIAL TEARS OPH SOLN 15 ML OU SCH ×4 (07:40→19:57)
[2017-01-02] MEDS: CYANOCOBALAMIN (Vitamin B-12) 500 MCG TABLET PO SCH (07:41)
[2017-01-02] MEDS: VITAMINS, MULTIPLE CAP PO SCH (07:41)
[2017-01-02] MEDS: FERROUS SULFATE 324 MG TAB PO SCH (07:41)
[2017-01-02] MEDS: KCl 10 mEq/100 ml Premix (Run) 10 MEQ/100 ML RTU IV SCH ×3 (09:50→13:05)
--- NOTE | 2017-01-02 09:58 | GENMEDPROG ---
Chief Complaint: Word-finding difficulty, nausea vomiting Subjective Note: This morning she is quite somnolent, she received IV Ativan due to her agitation and severe nausea. is at the bedside. Notes Reviewed: Yes: Events from last night noted and discussed with Clinical Staff Current Medication List: Reviewed DVT Prophylaxis: Yes - Physical Examination Vital Signs and I&O: Last Vital Signs Temp 98.0 F 01/02/17 07:43 Pulse 104 01/02/17 09:04 Resp 16 01/02/17 07:43 BP 172/80 01/02/17 07:43 Pulse Ox 98 01/02/17 07:43 Oxygen Pulse Oxygen Saturation 98 O2 Device Room Air Oxygen Flow Rate Fraction of Inspired Oxygen ( FIO2) Intake & Output 12/31/16 01/01/17 01/02/17 01/03/17 06:59 06:59 06:59 06:59 Intake Total 1733 Balance 1733 Patient's weight 52.617 kg 52.798 kg General: Other (Currently somnolent, sleeping and unarousable.) HEENT: EOMI (Sclera white) Neck: Normal Trachea alignment, Normal inspection Respiratory: Normal - CTA. negative: Accessory Muscle Use, Diminished, Tachypnea Cardiovascular: Regular rate, No Gallops,Rubs/Murmurs GI: Normal bowel sounds, Soft, Non tender (non distended) Extremities/Musculoskeletal: Other (Normal Tone). negative: Edema, Cyanosis Neurological: Other (Cranial nerves 2-12 are intact, she is moving all extremities, but she seems globally weak. No focal abnormality. No slurred speech. Speech is slow and quiet.) Lab/DI/Studies Reviewed: Laboratory Tests 01/01/17 01/02/17 01/02/17 04:35 04:10 04:10 WBC 11.8 H 16.5 H Hgb 11.6 L Hct 34.6 L Potassium 3.0 L BUN 25 H Creatinine 1.00 - Assessment (1) CVA (cerebral vascular accident) Acute I63.9 - CEREBRAL INFARCTION, UNSPECIFIED Qualifiers: CVA mechanism: unspecified Qualified Code(s): I63.9 - Cerebral infarction, unspecified Comment/Plan: Patient has a history of CVA in the past several years. She also had a subarachnoid hemorrhage in August 2016 after a fall. She was seen at [facility] [place] for the subarachnoid hemorrhage and did not have any craniotomy; she was sent home on 81 mg of aspirin, and the recommendation was the primary care physician could consider restarting the patient's Plavix at a later date. The patient is most likely suffered from another CVA. Admitting physician discussed the case with the patient's daughter, who is in agreement with the plan to keep the patient on aspirin only due to her history of subarachnoid hemorrhage. Plan: CVA order set. MRI head and Ultrasound of carotids in the AM. She has been seen by speech therapy for evaluation, recommend modified barium swallow evaluation today. Physical therapy and occupational therapy evaluations. Neuro checks q 4 hours. Telemetry. Continue daily aspirin. Continue statin. Check lipid levels. NOTE: TPA NOT GIVEN. NO TPA DUE TO: Patient outside of time window and history of subarachnoid hemorrhage. (2) Hypertension Acute I10 - ESSENTIAL (PRIMARY) HYPERTENSION Qualifiers: Hypertension type: essential hypertension Qualified Code(s): I10 - Essential (primary) hypertension (3) Type 2 diabetes mellitus with hyperglycemia Acute E11.65 - TYPE 2 DIABETES MELLITUS WITH HYPERGLYCEMIA Comment/Plan: Plan: Hold oral diabetes medications. Check fingerstick blood sugars q ac and hs. Sliding scale insulin. Ordered A1c and urine microalbumin. (4) Word finding difficulty Acute R47.89 - OTHER SPEECH DISTURBANCES Comment/Plan: Plan: Continue CVA workup. Speech therapy evaluation. (5) CRI (chronic renal insufficiency) Acute N18.9 - CHRONIC KIDNEY DISEASE, UNSPECIFIED Qualifiers: Chronic kidney disease stage: stage 1 Qualified Code(s): N18.1 - Chronic kidney disease, stage 1 Comment/Plan: Resolved
[2017-01-02] MEDS: ATORVASTATIN 40 MG TAB PO SCH (13:29)
--- NOTE | 2017-01-02 13:42 | DIRPT ---
CLINICAL DATA: Memory loss since fall 2 months ago. Abnormal speech since yesterday. EXAM: MRI HEAD WITHOUT AND WITH CONTRAST TECHNIQUE: Multiplanar, multiecho pulse sequences of the brain and surrounding structures were obtained without and with intravenous contrast. CONTRAST: 10 mL MultiHance COMPARISON: CTA head and neck 01/01/2016. CT head without contrast 12/31/2016. FINDINGS: The diffusion-weighted images demonstrate no evidence for acute or subacute infarction. Remote infarct is confirmed within the right side of the milagros. A left posterior paramedian infarct is also present in the milagros. Multiple remote lacunar infarcts are present in the basal ganglia bilaterally. Remote lacunar infarcts are present in the ally. There are no blood products associated with these infarcts. Moderate atrophy and diffuse periventricular white matter changes are present bilaterally. No significant extra-axial fluid collection is present. The internal auditory canals are within normal limits. Bilateral lens replacements are present. Flow is present in the major intracranial arteries. The paranasal sinuses are clear. There is some fluid in left mastoid air cells. No obstructing nasopharyngeal lesion is evident. The skullbase is within normal limits. Midline sagittal images demonstrate degenerative changes in the upper cervical spine. Midline sagittal images are otherwise unremarkable. The postcontrast images demonstrate no pathologic enhancement. IMPRESSION: 1. No acute intracranial abnormality. 2. Remote infarcts bilaterally in the milagros. 3. Multiple remote lacunar infarcts in the basal ganglia, left greater than right. 4. Moderate atrophy and diffuse white matter disease, likely related to chronic microvascular ischemia. 5. Minimal fluid in the left mastoid air cells. No obstructing nasopharyngeal lesion is present. Electronically Signed By: Osvaldo Islas M.D. On: 01/02/2017 13:39
[2017-01-02] MEDS: PANTOPRAZOLE 40 MG VIAL IV SCH (15:00)
[2017-01-02] MEDS: CEFTRIAXONE 1 GM in D5W 100 ML IV SCH (15:00)
[2017-01-02] MEDS: SODIUM CHLORIDE 0.9% 10 ML VIAL IV SCH (15:00)
[2017-01-02] MEDS: ASPIRIN 300 MG SUPP PR SCH (15:04)
[2017-01-02] MEDS: LEVOTHYROXINE 100 MCG (0.1 MG) SDV IV SCH (15:05)
[2017-01-03] MEDS: NS 1,000 ML IV SCH ×3 (02:44→23:42)
[2017-01-03 04:33] VITALS: BMI 20.5
[2017-01-03] MEDS: REGULAR INSULIN 100 UNITS/ML - 3 ML VIAL SQ SCH ×4 (05:25→21:38)
[2017-01-03 06:30] LABS: MPV 7.3 fL (7.4-10.4)
[2017-01-03 06:44] LABS: BLOOD UREA NITROGEN 22 MG/DL (7-17); CALCIUM 9.2 MG/DL (8.4-10.2); CALCULATED OSMOLALITY 275 MOs/Kg (270-290); CHLORIDE 106 mEq/L (98-107); GLUCOSE 156 mg/dL (70-99); SODIUM LEVEL 140 mEq/L (137-146)
[2017-01-03] MEDS: LEVOTHYROXINE 100 MCG (0.1 MG) SDV IV SCH ×2 (07:07→07:31)
[2017-01-03] MEDS: COLESEVELAM HCL 625 MG TAB PO SCH ×2 (07:08→21:36)
[2017-01-03] MEDS: PAROXETINE 20 MG TAB PO SCH (07:08)
[2017-01-03] MEDS: ARTIFICIAL TEARS OPH SOLN 15 ML OU SCH ×4 (07:12→21:37)
[2017-01-03] MEDS: ONDANSETRON HCL 4 MG/2 ML VIAL IV PRN (07:12)
[2017-01-03] MEDS: SODIUM CHLORIDE 0.9% 10 ML VIAL IV SCH ×2 (07:12→07:31)
[2017-01-03] MEDS: ASPIRIN 300 MG SUPP PR SCH (07:30)
[2017-01-03 09:32] VITALS: TEMP 99.2
[2017-01-03] MEDS: VITAMINS, MULTIPLE CAP PO SCH (09:43)
[2017-01-03] MEDS: CYANOCOBALAMIN (Vitamin B-12) 500 MCG TABLET PO SCH (09:43)
[2017-01-03] MEDS: FERROUS SULFATE 324 MG TAB PO SCH (09:43)
[2017-01-03] MEDS ORDERED: ONDANSETRON HCL 4 MG/2 ML VIAL IV PRN (09:58)
[2017-01-03] MEDS ORDERED: POTASSIUM CHLORIDE 20 MEQ TAB PO ONE (10:00)
[2017-01-03] MEDS ORDERED: ONDANSETRON HCL 4 MG/2 ML VIAL ONE (10:08)
[2017-01-03] MEDS: PANTOPRAZOLE 40 MG VIAL IV SCH (12:10)
[2017-01-03] MEDS: CEFTRIAXONE 1 GM in D5W 100 ML IV SCH (12:10)
[2017-01-03] MEDS ORDERED: VARIBAR THIN 40% BARIUM 250 ML ONE (14:40)
--- NOTE | 2017-01-03 15:53 | GENMEDPROG ---
Chief Complaint: Suspected stroke, word-finding difficulty, nausea vomiting Subjective Note: Patient is doing much better clinically this morning, awake and alert and looking comfortable. DVT Prophylaxis: Yes - Physical Examination Vital Signs and I&O: Last Vital Signs Temp 98.3 F 01/03/17 11:12 Pulse 82 01/03/17 13:29 Resp 18 01/03/17 11:12 BP 186/66 H 01/03/17 11:12 Pulse Ox 99 01/03/17 11:12 Oxygen Pulse Oxygen Saturation 99 O2 Device Room Air Oxygen Flow Rate Fraction of Inspired Oxygen ( FIO2) Intake & Output 01/01/17 01/02/17 01/03/17 01/04/17 06:59 06:59 06:59 06:59 Intake Total 1733 2132 120 Balance 1733 2132 120 Patient's weight 52.617 kg 52.798 kg 52.617 kg General: Other (Currently somnolent, sleeping and unarousable.) HEENT: EOMI (Sclera white) Neck: Normal Trachea alignment, Normal inspection Respiratory: Normal - CTA. negative: Accessory Muscle Use, Diminished, Tachypnea Cardiovascular: Regular rate, No Gallops,Rubs/Murmurs GI: Normal bowel sounds, Soft, Non tender (non distended) Extremities/Musculoskeletal: Other (Normal Tone). negative: Edema, Cyanosis Skin: No rashes, No significant lesion Neurological: Other (Cranial nerves 2-12 are intact, she is moving all extremities, but she seems globally weak. No focal abnormality. No slurred speech. Speech is slow and quiet.) Psych/Mental Status: Normal Affect (Fully oriented, Norla and appropriate affect ) Lab/DI/Studies Reviewed: Laboratory Tests 01/03/17 01/03/17 06:00 06:00 WBC 13.0 H Hgb 10.8 L Potassium 3.1 L BUN 22 H Creatinine 0.80 - Assessment (1) CVA (cerebral vascular accident) Acute I63.9 - CEREBRAL INFARCTION, UNSPECIFIED Qualifiers: CVA mechanism: unspecified Qualified Code(s): I63.9 - Cerebral infarction, unspecified Comment/Plan: Patient has a history of CVA in the past several years. She also had a subarachnoid hemorrhage in August 2016 after a fall. She was seen at [facility] for the subarachnoid hemorrhage and did not have any craniotomy; she was sent home on 81 mg of aspirin, and the recommendation was the primary care physician could consider restarting the patient's Plavix at a later date. The patient is most likely suffered from another CVA. Admitting physician discussed the case with the patient's daughter, who is in agreement with the plan to keep the patient on aspirin only due to her history of subarachnoid hemorrhage. Plan: Patient was admitted to the hospital under CVA order set. MRI of the head and ultrasound of carotids were performed, not indicative of an acute stroke. She has been seen by speech therapy for evaluation, they do recommend a modified barium swallow which will happen this afternoon. Physical therapy and occupational therapy have evaluated the patient, recommend subacute nursing facility at discharge. Continue daily aspirin, continue daily statin. Note the patient was not given tPA at the time of admission due to being outside of the time window, as well as the fact that she has a history of subarachnoid hemorrhage. At this point stroke has been ruled out. (2) Hypertension Acute I10 - ESSENTIAL (PRIMARY) HYPERTENSION Qualifiers: Hypertension type: essential hypertension Qualified Code(s): I10 - Essential (primary) hypertension (3) Type 2 diabetes mellitus with hyperglycemia Acute E11.65 - TYPE 2 DIABETES MELLITUS WITH HYPERGLYCEMIA Comment/Plan: Plan: Hold oral diabetes medications. Check fingerstick blood sugars q ac and hs. Sliding scale insulin. Ordered A1c and urine microalbumin. (4) Word finding difficulty Acute R47.89 - OTHER SPEECH DISTURBANCES Comment/Plan: Plan: Continue CVA workup. Speech therapy evaluation. (5) CRI (chronic renal insufficiency) Acute N18.9 - CHRONIC KIDNEY DISEASE, UNSPECIFIED Qualifiers: Chronic kidney disease stage: stage 1 Qualified Code(s): N18.1 - Chronic kidney disease, stage 1 Comment/Plan: Resolved
[2017-01-03] MEDS: ATORVASTATIN 40 MG TAB PO SCH (17:29)
[2017-01-04] MEDS: REGULAR INSULIN 100 UNITS/ML - 3 ML VIAL SQ SCH ×2 (04:27→11:48)
[2017-01-04 07:12] LABS: BLOOD UREA NITROGEN 20 MG/DL (7-17); CALCIUM 8.9 MG/DL (8.4-10.2); CALCULATED OSMOLALITY 273 MOs/Kg (270-290); CHLORIDE 107 mEq/L (98-107); GLUCOSE 115 mg/dL (70-99); SODIUM LEVEL 140 mEq/L (137-146)
[2017-01-04 07:17] LABS: MPV 7.1 fL (7.4-10.4)
[2017-01-04] MEDS ORDERED: hydrALAZINE 20 MG/ML VIAL IV PRN (08:14)
[2017-01-04] MEDS ORDERED: ASPIRIN (CHEWABLE) 81 MG TAB PO SCH (09:00)
[2017-01-04] MEDS ORDERED: LEVOTHYROXINE 50 MCG (0.05 MG) TAB PO SCH (09:00)
[2017-01-04] MEDS: POTASSIUM CHLORIDE 20 MEQ TAB PO SCH ×3 (09:12→12:37)
[2017-01-04] MEDS: FERROUS SULFATE 324 MG TAB PO SCH (09:13)
[2017-01-04] MEDS: VITAMINS, MULTIPLE CAP PO SCH (09:13)
[2017-01-04] MEDS: PAROXETINE 20 MG TAB PO SCH (09:13)
[2017-01-04] MEDS: COLESEVELAM HCL 625 MG TAB PO SCH (09:14)
[2017-01-04] MEDS: ARTIFICIAL TEARS OPH SOLN 15 ML OU SCH ×3 (09:14→11:45)
--- NOTE | 2017-01-04 10:33 | PCM.DCS92 ---
- Final/Secondary Discharge Diagnosis (1) CVA (cerebral vascular accident) Acute I63.9 - CEREBRAL INFARCTION, UNSPECIFIED Present on Admission: Yes unspecified I63.9 - Cerebral infarction, unspecified Comment: Patient has a history of CVA in the past several years. She also had a subarachnoid hemorrhage in August 2016 after a fall. She was seen at [facility] for the subarachnoid hemorrhage and did not have any craniotomy; she was sent home on 81 mg of aspirin, and the recommendation was the primary care physician could consider restarting the patient's Plavix at a later date. There was concerned the patient is most likely suffered from another CVA. Admitting physician discussed the case with the patient's daughter, who is in agreement with the plan to keep the patient on aspirin only due to her history of subarachnoid hemorrhage. Plan: Patient was admitted to the hospital under CVA order set. MRI of the head and ultrasound of carotids were performed, not indicative of an acute stroke. She has been seen by speech therapy for evaluation, they do recommend a modified barium swallow which will happen this afternoon. Physical therapy and occupational therapy have evaluated the patient, recommend subacute nursing facility at discharge. Continue daily aspirin, continue daily statin. Note the patient was not given tPA at the time of admission due to being outside of the time window, as well as the fact that she has a history of subarachnoid hemorrhage. At this point stroke has been ruled out. (2) Hypertension Acute I10 - ESSENTIAL (PRIMARY) HYPERTENSION essential hypertension I10 - Essential (primary) hypertension (3) Type 2 diabetes mellitus with hyperglycemia Acute E11.65 - TYPE 2 DIABETES MELLITUS WITH HYPERGLYCEMIA Present on Admission: Yes Comment: Plan: Hold oral diabetes medications. Check fingerstick blood sugars q ac and hs. Sliding scale insulin. Ordered A1c and urine microalbumin. (4) Word finding difficulty Acute R47.89 - OTHER SPEECH DISTURBANCES Present on Admission: Yes Comment: Plan: Continue CVA workup. Speech therapy evaluation. (5) CRI (chronic renal insufficiency) Acute N18.9 - CHRONIC KIDNEY DISEASE, UNSPECIFIED stage 1 N18.1 - Chronic kidney disease, stage 1 Comment: Resolved Discharge Disposition: Custodial Facility Discharge Condition: Fair Fuctional Discharge Status: Wheelchair Assistance Physician Follow up/Referrals: Jany Son MD [Primary Care Provider] - One Week Home Medications / New Prescriptions: New Aspirin 300 mg [place] DAILY #30 supp Atorvastatin Calcium [Lipitor] 40 mg PO DAILY@1800 #30 tablet Cephalexin Monohydrate [Keflex] 500 mg PO BID #10 cap Continue Levothyroxine Sodium [Synthroid] 50 mcg PO 1000 Colesevelam HCl [Welchol] 625 mg PO BID Gabapentin 400 mg PO BID Loperamide HCl [Imodium A-D] 2 mg PO DIR PRN PRN Reason: LOOSE STOOL Hydrocodone/Acetaminophen [Hydrocodon-Acetaminophn 10-325] 1 tab PO TID Cyanocobalamin (Vitamin B-12) [B-12] 1,000 mcg PO 1000 Potassium Chloride [Klor-Con] 20 meq PO BID Paroxetine HCl [Paxil] 20 mg PO 1000 Omeprazole [Prilosec] 20 mg PO 1000 Vit C/E/Zn/Coppr/Lutein/Zeaxan [Ocuvite Lutein & Zeaxanthin Cp] 1 cap PO 1000 Melatonin 5 mg PO HS Fish Oil/Dha/Epa [Fish Oil 1,200 mg Fish Oil] 1 each PO 1000 Calcium Carbonate/Vitamin D3 [Calcium 600 + Vit D Tablet] 1 tab PO 1000 Bethanechol [Urecholine] 25 mg PO BID Phosp Acid/Dextrose/Fructose [Emetrol Oral Solution] 15 ml PO .Q15M PRN PRN Reason: Nausea Fexofenadine HCl [Allergy Relief] 60 mg PO DAILY PRN PRN Reason: ALLERGIES Juice Plus Orchard 1 tab PO BID Juice Plus Garden 1 tab PO BID Glipizide [Glipizide ER] 5 mg PO 1000 Guaifenesin-Dextromethorphan [Robitussin Dm] 10 ml PO Q4H PRN PRN Reason: Cough Loperamide HCl [Loperamide] 2 mg PO QID PRN PRN Reason: Diarrhea Acetaminophen Ex Str Tablet [TYLENOL EXTRA STRENGTH Tablet] 1,000 mg PO Q6H PRN PRN Reason: Mild Pain Or Fever Ferrous Sulfate [Slow Release Iron] 45 mg PO 1000 Dextran 70/Hypromellose [Artificial Tears Drops] 2 drops OU QID Hypromellose [Artificial Tears] 15 ml OP QID Discontinued Atorvastatin Calcium [Lipitor] 40 mg PO 1000 Aspirin (Enteric Coated) [Halfprin] 81 mg PO 1000 Nitrofurantoin [Macrobid] 100 mg PO DAILY O2 Device: Room Air Diet at Discharge: As Tolerated, Diabetic Activity: No Restrictions - DC Summary Notes HPI/Notes: This is an 81-year-old female with a history of prior CVA who was admitted to the hospital with word-finding difficulty and confusion. She also has a history of gastroparesis, and had continued nausea vomiting during this hospital stay, but this has improved in the last 48 hours. The patient was evaluated with intracranial imaging, with no acute findings notified. Acute stroke has been ruled out. She was seen by Physical therapy, who recommend subacute nursing facility placement, and she has been accepted at [facility] where she will be discharging today. She was found have a UTI and will be treated by keep p.o. Keflex at discharge. Please see the hospital problems and discharge problems above for details of the hospital course including diagnostics and treatment. The plan of care including medications, prognosis, follow-up including alarm symptoms for which medical care should be sought were reviewed with the patient and any available family members/caretakers. The patient is agreeable to discharge today, and all questions were answered by me to their satisfaction. Hospital Course Note:: Discharge summary on patient named IRMA LIRA admitted to [facility] on 12/31/16 by Iron Beasley MD. Date of discharge is []. Total Time: 45 - Physical Exam Vital Signs: Last Vital Signs Temp 97.8 F 01/04/17 07:54 Pulse 64 01/04/17 10:00 Resp 18 01/04/17 07:54 BP 138/52 L 01/04/17 10:30 Pulse Ox 97 01/04/17 07:54 Oxygen Pulse Oxygen Saturation 97 O2 Device Room Air Oxygen Flow Rate Fraction of Inspired Oxygen ( FIO2) Constitutional: Alert. negative: Well appearing Oriented to: Time, Person, Place Exam: Thin frail elderly woman, resting comfortably in bed this morning. - HEENT Head: negative: Deformity, Laceration Eye: negative: Conjunctival Injection, Pale Conjunctiva Oropharynx: negative: Membranes Dry Nose: negative: Congestion, Discharge - Respiratory/Cardiovascular Respiratory: Normal - CTA. negative: Accessory Muscle Use, Diminished, Tachypnea - GI Auscultation: Normal Palpation: Normal Tenderness: Moderate, Guarding. negative: Rebound, Rigidity - Musculoskeletal Extremities: Radial Pulse (PALPABLE) - Integumentary Skin: Warm, Dry. negative: Rash - Neurologic Memory Impaired: Normal Mood Description: Anxious Thought: Coherent
[2017-01-04] MEDS: CYANOCOBALAMIN (Vitamin B-12) 500 MCG TABLET PO SCH (11:09)
[2017-01-04 11:49] VITALS: PULSE 101; TEMP 98.4
[2017-01-04 12:31] VITALS: BP 126/79
[2017-01-04] MEDS: CEFTRIAXONE 1 GM in D5W 100 ML IV SCH (12:37)
[2017-01-04] MEDS: PANTOPRAZOLE 40 MG VIAL IV SCH (12:37)
== END 2017-01-04 14:09 | DRG 92 ==
LOC: ED 13:58 → PCU 19:17
PROVIDERS: ADMIT Internal Medicine; ATTEND Internal Medicine
PROC: B345ZZZ Ultrasonography of Bilateral Common Carotid Arteries (ICD-10-PCS; principal; 2017-01-01)
PROC: B348ZZZ Ultrasonography of Bilateral Internal Carotid Arteries (ICD-10-PCS; 2017-01-01)
DX: R47.89 Other speech disturbances (principal); N39.0 Urinary tract infection, site not specified; E11.65 Type 2 diabetes mellitus with hyperglycemia; R41.82 Altered mental status, unspecified; I12.9 Hypertensive chronic kidney disease with stage 1 through stage 4 chronic kidney disease, or unspecified chronic kidney disease; N18.1 Chronic kidney disease, stage 1; K31.84 Gastroparesis; E03.9 Hypothyroidism, unspecified; H54.8 Legal blindness, as defined in USA; M19.90 Unspecified osteoarthritis, unspecified site; H35.30 Unspecified macular degeneration; F32.9 Major depressive disorder, single episode, unspecified; Z86.73 Personal history of transient ischemic attack (TIA), and cerebral infarction without residual deficits; Z85.42 Personal history of malignant neoplasm of other parts of uterus; Z92.3 Personal history of irradiation; Z99.3 Dependence on wheelchair; Z91.81 History of falling; Z90.710 Acquired absence of both cervix and uterus; Z90.49 Acquired absence of other specified parts of digestive tract; Z88.5 Allergy status to narcotic agent; Z88.0 Allergy status to penicillin; Z88.2 Allergy status to sulfonamides; Z88.8 Allergy status to other drugs, medicaments and biological substances; Z79.82 Long term (current) use of aspirin; Z79.84 Long term (current) use of oral hypoglycemic drugs
CPT/HCPCS: 36415; 70450; 70496; 70498; 70553; 71010; 74177; 80048; 80053; 81001; 82043; 82962; 83036; 83690; 84484; 85025; 85027; 85610; 85651; 85730; 87040; 87077; 87086; 87186; 93005; 93880; 96372; 96374; 97163; 97166; 99284; A9577; A9698; J0360; J0696; J2060; J2405; J3480; J3490; J7060; S0164